=== PATIENT | female | born 1990 | race Caucasian/White ===

== ENCOUNTER → 2021-01-15 | Outpatient (CLI) | payer OTHER | LOC: EXRD 15:32 | DX: M25.561 Pain in right knee (principal) | CPT/HCPCS: 73564 ==

== ENCOUNTER 2021-04-18 15:26 | Emergency (ER) | payer OTHER | END 2021-04-18 16:11 | disposition home or self-care (01) | LOC: ER1 15:26 | DX: U07.1 COVID-19 (principal); Z88.5 Allergy status to narcotic agent | CPT/HCPCS: 99283 ==

== ENCOUNTER → 2021-09-19 | Outpatient (CLI) | payer OTHER | LOC: HEART 5 09-18 10:00 | DX: R53.83 Other fatigue (principal); R00.2 Palpitations; I07.1 Rheumatic tricuspid insufficiency ==